=== PATIENT | female | born 1990 | race Caucasian/White ===

== ENCOUNTER 2018-09-13 21:36 | Emergency (ER) | payer BC ==
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
[2018-09-13] MEDS ORDERED: oxyCODONE 5 MG TABLET PO STA (22:10)
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
[2018-09-13] MEDS ORDERED: oxyCODONE/ACET 5/325 Prepack 4 PO STA (22:54)
[2018-09-13 23:02] VITALS: BP 127/91
== END 2018-09-13 23:18 | disposition home or self-care (01) ==
LOC: ED 21:36
DX: S52.571A Other intraarticular fracture of lower end of right radius, initial encounter for closed fracture (principal); V29.3XXA Motorcycle rider (driver) (passenger) injured in unspecified nontraffic accident, initial encounter; Y92.410 Unspecified street and highway as the place of occurrence of the external cause
CPT/HCPCS: 73110; 99283; A9270